=== PATIENT | male | born 1955 | race African-American/Black ===

== ENCOUNTER 2022-10-23 05:57 | Emergency (ER) | payer MEDICARE, MEDICAID ==
[2022-10-23 07:10] LABS: Actual Bicarbonate (HCO3v) 27.4 mEq/L (22-28); Base Excess 2.6 mEq/L (-2.0 to +3.0); Calcium, Ionized (venous) 1.29 mmol/L (1.16-1.32); Chloride (VBG) 124 mmol/L (98-106); Hematocrit-VBG 41 % (42.0-52.0); Potassium (VBG) 4.84 mmol/L (3.70-5.30); pH (venous) 7.424 (7.32-7.43)
[2022-10-23 07:14] LABS: Hematocrit 45.1 % (42.0-52.0); Hemoglobin 12.9 g/dL (14.0-18.0); Mean Corpuscular HGB CONC 28.6 g/dL (32.0-36.0); Mean Corpuscular Hemoglobin 32.3 pg (27.0-31.0); Mean Platelet Volume 13.4 fL (7.4-10.4); Platelet Count 205 10x3/uL (130-400); Red Blood Cell (RBC) Count 3.99 mill/uL (4.70-6.10); White Blood Cell (WBC) Count 12.6 10x3/uL (4.8-10.8)
[2022-10-23 07:26] LABS: Delete Auto Diff?? YES; Manual Diff?? YES
[2022-10-23 07:29] LABS: Bilirubin Negative (Negative); Blood, Urine Trace (Negative); Glucose, Urine (Dipstick) >=1000 mg/dL (Negative); Ketone, Urine Negative (Negative); Leukocyte Negative (Negative); Nitrite Negative (Negative); Protein, Urine (Dipstick) Negative (Neg-Trace); Urobilinogen 0.2 mg/dL (Less than 2); pH, Urine 5.5 (5.0-9.0)
[2022-10-23 07:31] LABS: Bacteria/HPF None Seen HPF (None Seen); CAUTI Indications for Culture Alt mental st,lethar; Clarity Clear (Clear); RBC/HPF None Seen HPF (0-3); Squamous Epithelial None Seen HPF (0-3); WBC/HPF None Seen HPF (0-3)
[2022-10-23 07:33] LABS: Urine Culture Reflex No No
[2022-10-23 07:51] LABS: Band 9 % (5-11); CellaVision Operator ID LAB.GE; Lymphocytes 8 % (21-51); Macrocytosis SLIGHT = 6-15 cells HPF (0-5); Monocytes 3 % (0-10); Neutrophil 80 % (42-75); Platelet Adequacy Comment Platelets Normal; Poikilocytosis SLIGHT = 6-15 cells HPF (0-5); Polychromasia SLIGHT = 2-3 cells HPF (0-2); Total Cell Count 98
[2022-10-23 07:54] LABS: ALT (SGPT) 61 U/L (8-55); AST (SGOT) 52 U/L (5-34); Albumin 2.9 g/dL (3.4-4.8); Alkaline Phosphatase 79 U/L (40-110); Anion Gap 20 mmol/L (10-20); BUN (Urea Nitrogen) 105 mg/dL (8.4-25.7); Bilirubin, Total 0.4 mg/dL (0.2-1.2); Calc. Creatinine Clearance 0 mL/min (70-130); Calcium 10.9 mg/dL (7.8-10.44); Carbon Dioxide 27 mmol/L (23-31); Chloride 125 mmol/L (98-107); Estimated GFR 40; Globulin 4.9 g/dL (2.4-3.5); Glucose Greater than 800 mg/dL (80-115); Potassium 5.6 mmol/L (3.5-5.1); Protein, Total 7.8 g/dL (5.8-8.1); Sodium 166 mmol/L (136-145)
[2022-10-23] MEDS ORDERED: Insulin Regular 300 UNITS/3 ML VIAL ONE (08:23)
[2022-10-23 08:30] LABS: Troponin I 0.069 ng/mL (< 0.028)
[2022-10-23] MEDS ORDERED: LORazepam 2 MG/ML SYR.(CARPUJECT) ONE ×2 (08:57→10:26)
[2022-10-23] MEDS ORDERED: Sodium Chloride 0.45% 1,000 ML IV SCH (09:15)
[2022-10-23 14:36] LABS: Anion Gap 16 mmol/L (10-20); BUN (Urea Nitrogen) 99 mg/dL (8.4-25.7); Calc. Creatinine Clearance 0 mL/min (70-130); Calcium 10.4 mg/dL (7.8-10.44); Carbon Dioxide 31 mmol/L (23-31); Chloride 128 mmol/L (98-107); Estimated GFR 44; Glucose 740 mg/dL (80-115); Potassium 5.4 mmol/L (3.5-5.1); Sodium 170 mmol/L (136-145)
[2022-10-24 13:43] LABS: Sodium 168.7 mmol/L (133-146)
== END 2022-10-23 14:05 | disposition short-term general hospital (02) ==
LOC: ERS 05:57
DX: E87.0 Hyperosmolality and hypernatremia (principal); R41.82 Altered mental status, unspecified; R73.9 Hyperglycemia, unspecified; E78.5 Hyperlipidemia, unspecified; I48.91 Unspecified atrial fibrillation; Z79.82 Long term (current) use of aspirin; Z79.899 Other long term (current) drug therapy
CPT/HCPCS: 51701; 70450; 71045; 80048; 81001; 82010; 82533; 82805; 82962; 83930; 84484; 93005; 94760; 95816; 95819; 95957; 96361; 96374; 96375; 96376; 99285; J2060; 36416; 80053; 84443; 85025; J1815